=== PATIENT | female | born 2000 | race Two or more races ===

== ENCOUNTER → 2024-12-01 | Outpatient (REF) | payer OTHER | LOC: M SFHCWAGY 15:15 | PROVIDERS: ATTEND Obstetrics & Gynecology | DX: O26.893 Other specified pregnancy related conditions, third trimester (principal) ==

== ENCOUNTER → 2024-12-18 | Outpatient (REF) | payer OTHER | LOC: M SFHCWAGY 10:02 | PROVIDERS: ATTEND Nurse Practitioner Family | DX: Z36.85 Encounter for antenatal screening for Streptococcus B (principal); Z3A.36 36 weeks gestation of pregnancy ==

== ENCOUNTER 2025-01-04 21:41 | Outpatient (CLI) | payer OTHER ==
[~2025-01-04] VITALS: Ht 157.5 cm; Wt 91.8 kg
[2025-01-04] MEDS ORDERED: HOME MED LIST COMPLETE! XX SCH (21:50)
[2025-01-04] MEDS ORDERED: PRENTAB9 PO (21:50)
[2025-01-04 21:57] VITALS: BP 123/79
[2025-01-05 00:09] VITALS: BP 118/68
== END 2025-01-05 00:10 | disposition home or self-care (01) ==
LOC: M LDO 21:41
PROVIDERS: ATTEND Advanced Practice Midwife
DX: O26.893 Other specified pregnancy related conditions, third trimester (principal); N89.8 Other specified noninflammatory disorders of vagina; Z3A.38 38 weeks gestation of pregnancy; Z88.0 Allergy status to penicillin; Z88.1 Allergy status to other antibiotic agents; Z91.018 Allergy to other foods
CPT/HCPCS: 59025; G0463

== ENCOUNTER 2025-01-19 11:51 | Inpatient (IN) | payer OTHER ==
[~2025-01-19] VITALS: Ht 157.5 cm; Wt 91.8 kg
[2025-01-19] VITALS (24 sets, daily range): BP systolic 113–169; BP diastolic 61–131
[~2025-01-19 11:51] MED LIST: PRENTAB9 PO
[2025-01-19] MEDS ORDERED: HOME MED LIST COMPLETE! XX SCH (12:45)
[2025-01-19] MEDS: miSOPROStol 25 MCG 1/4 TABLET PV ONE (13:45)
[2025-01-19] MEDS ORDERED: METHYLERGONOVINE MALEATE 0.2 MG/ML 1 ML VIAL IM PRN (13:50)
[2025-01-19] MEDS: BUTORPHANOL 2 MG/ML 1 ML VIAL IV ONE (14:45)
[2025-01-19 17:32] LABS: PLATELET COUNT, AUTOMATED 229 10^3/uL (150-450)
[2025-01-19] MEDS ORDERED: OXYTOCIN DRIP 30 UNITS in IV 1 EA IV PRN (17:45)
[2025-01-19] MEDS ORDERED: LIDOCAINE 1% MDV 20 ML VIAL INFIL PRN (17:45)
[2025-01-19] MEDS: OXYTOCIN DRIP 30 UNITS in IV 1 EA IV SCH (18:07)
[2025-01-19] MEDS: LR 1,000 ML IV SCH (18:07)
[2025-01-19 18:29] LABS: HIV 1&2 SCREEN NEGATIVE (NEGATIVE)
[2025-01-19 18:37] LABS: HEPATITIS C VIRUS ABY INDEX < 0.02 INDEX (<0.8)
[2025-01-19] MEDS ORDERED: EPIDURAL/PCA KEYS XX PRN (19:05)
[2025-01-19] MEDS ORDERED: diphenhydrAMINE 50 MG/ML VIAL IV PRN (19:05)
[2025-01-19] MEDS ORDERED: NALOXONE INJ 0.4 MG/1 ML VIAL IV PRN (19:05)
[2025-01-19] MEDS ORDERED: LR 500 ML IV PRN (19:05)
[2025-01-19] MEDS: FENTANYL/ROPIVACAINE/NACL BAG 100 ML EPIDURAL SCH (19:42)
[2025-01-19] MEDS: ONDANSETRON 4MG 2ML VIAL IV PRN (21:19)
[2025-01-19] MEDS: ACETAMINOPHEN 500 MG TAB PO ONE (23:27)
[2025-01-19] MEDS: AZITHROMYCIN INJ 500 MG, VIAL MATE ADAPTER 1 EACH in NS 250 ML IV ONE (23:40)
[2025-01-19] MEDS: MAG Sulf (OBGYN) 20GM/500ML 20,000 MG in IV 1 EA IV SCH (23:40)
[2025-01-19] MEDS: ceFAZolin SODIUM 2 GM in DEXTROSE 5% (D5W) ADV/MINI-BAG 50 ML IV ONE (23:40)
[2025-01-20] VITALS (12 sets, daily range): BP systolic 104–134; BP diastolic 55–75; TEMP 100.1; O2SAT 76–100
[2025-01-20] MEDS: TERBUTALINE SULFATE 1 MG/ML 1ML VIAL SC STA (00:15)
[2025-01-20] MEDS: MAGNESIUM *L&D* 4 GM/100 ML BAG (40 MG/ML) IV ONE (00:16)
[2025-01-20 00:28] LABS: PLATELET COUNT, AUTOMATED 204 10^3/uL (150-450)
[2025-01-20 00:33] LABS: TOTAL PROTEIN,RANDOM URINE 19.0 MG/DL (0.0-14.0)
[2025-01-20] MEDS ORDERED: ONDANSETRON 4MG 2ML VIAL As Ordered ONE (00:34)
[2025-01-20] MEDS ORDERED: LIDOCAINE 2% W/EPINEPHrine 20 ML VIAL **PRES FREE As Ordered ONE (00:34)
[2025-01-20] MEDS ORDERED: KETOROLAC 30 MG/ML 1 ML VIAL As Ordered ONE (00:35)
[2025-01-20] MEDS ORDERED: ACETAMINOPHEN 1000MG/100ML IV BAG As Ordered ONE (00:36)
[2025-01-20] MEDS ORDERED: OXYTOCIN 30UNITS IN 0.9% NaCl 500ML IV BAG As Ordered ONE (00:36)
[2025-01-20 00:38] LABS: LDH LACTATE DEHYDROGENASE 185 U/L (120-246)
[2025-01-20 00:39] LABS: ALT/SGPT 24 U/L (7.0-40); AST/SGOT 31 U/L (<34); CREATININE FOR GFR 0.63 MG/DL (0.55-1.30); GLOMERULAR FILTRATION RATE > 90.0 (>60)
[2025-01-20] MEDS ORDERED: MORPHINE PRES-FREE INJ 10 MG/10 ML VIAL As Ordered ONE (01:03)
[2025-01-20 01:13] LABS: CORD GAS ABE V -2.8; CORD GAS HCO3 V 22.7 MMOL/L; CORD GAS O2 SAT V 59.2 %; CORD GAS PCO2 V 42.2 mmHg; CORD GAS PH V 7.349 UNITS; CORD GAS PO2 V 22.4 mmHg; CORD GAS SBC V 21.0 MMOL/L; CORD GAS TCO2 V 24.0 MMOL/L
[2025-01-20 01:16] LABS: CORD GAS ABE A -4.9; CORD GAS HCO3 A 22.0 MMOL/L; CORD GAS O2 SAT A 44.9 %; CORD GAS PCO2 A 47.4 mmHg; CORD GAS PH A 7.285 UNITS; CORD GAS PO2 A 21.9 mmHg; CORD GAS SBC A 19.1 MMOL/L; CORD GAS TCO2 A 23.5 MMOL/L
[2025-01-20] MEDS ORDERED: ESMOLOL 100 MG/10 ML VIAL As Ordered ONE (01:26)
[2025-01-20] MEDS ORDERED: **NOTE PATIENT COMMENT** MISC XX SCH (01:30)
[2025-01-20] MEDS: SLF 3 ML SYR IV SCH (01:30)
[2025-01-20] MEDS ORDERED: ONDANSETRON 4MG 2ML VIAL IV PRN ×2 (01:30→03:25)
[2025-01-20] MEDS ORDERED: MEPERIDINE 25 MG/ML 1 ML VIAL IV PRN (01:30)
[2025-01-20] MEDS ORDERED: diphenhydrAMINE 50 MG/ML VIAL IV PRN (01:30)
[2025-01-20] MEDS ORDERED: NALOXONE INJ 0.4 MG/1 ML VIAL IV PRN ×2 (01:30)
[2025-01-20] MEDS: OXYTOCIN DRIP 30 UNITS in IV 1 EA IV SCH (03:25)
[2025-01-20] MEDS ORDERED: ANUSOL HC CREAM 30 GM TOP PRN (03:25)
[2025-01-20] MEDS ORDERED: MORPHINE 4 MG/ML 1 ML VIAL IV PRN (03:25)
[2025-01-20] MEDS ORDERED: MOM 30 ML SUSPENSION UDC PO PRN (03:25)
[2025-01-20] MEDS: LR 1,000 ML IV SCH (03:25)
[2025-01-20] MEDS: HYDROmorphone 2 MG TAB PO PRN (04:19)
[2025-01-20] MEDS ORDERED: ceFAZolin SOD 2 GM in DEXTROSE 5% (D5W) ADV/MINI-BAG 50 ML IV SCH (06:45)
[2025-01-20] MEDS: KETOROLAC 30 MG/ML 1 ML VIAL IV SCH (08:11)
[2025-01-20] MEDS: PRENATAL VITAMINS CHEWABLE TABLET PO SCH (08:12)
[2025-01-20] MEDS: ceFAZolin SODIUM 2 GM in DEXTROSE 5% (D5W) ADV/MINI-BAG 50 ML IV ONE (08:34)
[2025-01-20] MEDS: IBUPROFEN 800 MG TAB PO SCH (21:19)
[2025-01-21 02:16] VITALS: BP 118/64; O2SAT 99
[2025-01-21] MEDS ORDERED: IBUPROFEN 800 MG TAB PO SCH (03:00)
[2025-01-21 06:15] VITALS: BP 119/58; O2SAT 98
[2025-01-21 06:49] LABS: PLATELET COUNT, AUTOMATED 167 10^3/uL (150-450)
[2025-01-21 10:09] VITALS: BP 127/65; O2SAT 97
[2025-01-21] MEDS: ONDANSETRON 4MG ORAL DISINTEGRATING TAB SL PRN (13:05)
[2025-01-21 14:00] VITALS: BP 128/79; O2SAT 99
[2025-01-21 18:00] VITALS: BP 117/60; O2SAT 99
[2025-01-21 22:00] VITALS: BP 125/66; O2SAT 100
[2025-01-22 02:00] VITALS: BP 130/66; O2SAT 98
[2025-01-22 06:10] VITALS: BP 114/57; O2SAT 100
[2025-01-22] MEDS: MEASLES,MUMPS,RUBELLA VACCINE INJ (MMR-II) SC.IMMUN ONE (09:00)
[2025-01-22] MEDS: SIMETHICONE 80MG CHEW TAB PO PRN (09:05)
[2025-01-22] MEDS: ACETAMINOPHEN 500 MG TAB PO PRN (09:06)
[2025-01-22] MEDS: DOCUSATE SODIUM 100 MG CAPSULE PO PRN (09:06)
[2025-01-22] MEDS ORDERED: PERC10TA26 PO (16:31)
[2025-01-22] MEDS ORDERED: COLA100C5 PO (16:38)
[2025-01-22] MEDS ORDERED: IBUP600T42 PO (16:38)
[2025-01-22 18:00] VITALS: BP 124/64; O2SAT 98
[2025-01-22 22:00] VITALS: BP 138/87; O2SAT 99
[2025-01-23 06:30] VITALS: BP 133/76; O2SAT 98
[2025-01-23 10:30] VITALS: BP 119/58; O2SAT 98
== END 2025-01-23 14:00 | disposition home or self-care (01) | DRG 773 ==
LOC: M LDI 11:51 → M OBS 01-20 03:22
PROVIDERS: ADMIT Student in an Organized Health Care Education/Training Program; ATTEND Student in an Organized Health Care Education/Training Program
PROC: 10907ZC Drainage of Amniotic Fluid, Therapeutic from Products of Conception, Via Natural or Artificial Opening (ICD-10-PCS; 2025-01-19)
PROC: 3E0DXGC Introduction of Other Therapeutic Substance into Mouth and Pharynx, External Approach (ICD-10-PCS; 2025-01-19)
PROC: 3E033VJ Introduction of Other Hormone into Peripheral Vein, Percutaneous Approach (ICD-10-PCS; 2025-01-19)
PROC: 3E0P7GC Introduction of Other Therapeutic Substance into Female Reproductive, Via Natural or Artificial Opening (ICD-10-PCS; 2025-01-20)
PROC: 10D00Z1 Extraction of Products of Conception, Low, Open Approach (ICD-10-PCS; principal; 2025-01-20 00:57)
DX: O48.0 Post-term pregnancy (principal); Z37.0 Single live birth; Z3A.40 40 weeks gestation of pregnancy; Z88.0 Allergy status to penicillin; Z88.8 Allergy status to other drugs, medicaments and biological substances; Z91.018 Allergy to other foods; O14.14 Severe pre-eclampsia complicating childbirth; O41.1290 Chorioamnionitis, unspecified trimester, not applicable or unspecified; O62.0 Primary inadequate contractions

== ENCOUNTER → 2025-03-16 | Outpatient (REF) | payer OTHER ==
[~2025-03-16] MED LIST changes: +COLA100C5 PO; +IBUP600T42 PO; +PERC10TA26 PO
== END ==
LOC: M PLALAB 14:22
PROVIDERS: ATTEND Student in an Organized Health Care Education/Training Program
DX: R39.9 Unspecified symptoms and signs involving the genitourinary system (principal)